=== PATIENT | male | born 1955 | race Two or more races ===

== ENCOUNTER 2022-02-17 02:34 | Emergency (ER) | payer MEDICAID ==
[~2022-02-17] VITALS: Ht 170.2 cm; Wt 68.0 kg
[2022-02-17] MEDS ORDERED: CALCIUM CHLOR(10%) 100MG/ML 10ML SYRINGE IV ONE (02:35)
[2022-02-17] MEDS ORDERED: EPINEPHrine HCL 1 MG/10 ML SYRG IV ONE (02:35)
[2022-02-17] MEDS ORDERED: AMIODARONE HCL (50 MG/ ML) 3 ML VIAL IV ONE (02:35)
[2022-02-17 02:58] VITALS: BP 0/0
== END 2022-02-17 02:45 ==
LOC: ER 02:34 → EDBD 02:34 → ER 02:45
DX: I46.9 Cardiac arrest, cause unspecified (principal)
CPT/HCPCS: 31500; 99285; J0171; J0282